=== PATIENT | female | born 1945 | race Hispanic/Latino ===

== ENCOUNTER → 2017-07-12 | Outpatient (CLI) | payer OTHER, MEDICARE | END | disposition home or self-care (01) | LOC: RAH 09:01 | PROVIDERS: ATTEND Family Medicine | DX: R10.10 Upper abdominal pain, unspecified (principal) | CPT/HCPCS: 76700 ==

== ENCOUNTER → 2017-12-12 | Outpatient (CLI) | payer OTHER, MEDICARE | END | disposition home or self-care (01) | LOC: OIH 13:05 | PROVIDERS: ATTEND Family Medicine | DX: J44.9 Chronic obstructive pulmonary disease, unspecified (principal); I10 Essential (primary) hypertension; Z90.11 Acquired absence of right breast and nipple | CPT/HCPCS: 71046 ==

== ENCOUNTER → 2018-01-09 | Outpatient (CLI) | payer OTHER, MEDICARE | END | disposition home or self-care (01) | LOC: RAH 13:06 | PROVIDERS: ATTEND Family Medicine | DX: I65.29 Occlusion and stenosis of unspecified carotid artery (principal) | CPT/HCPCS: 93880 ==

== ENCOUNTER → 2018-03-01 | Outpatient (CLI) | payer OTHER, MEDICARE | END | disposition home or self-care (01) | LOC: RAH 07:45 | PROVIDERS: ATTEND Family Medicine | DX: N63.20 Unspecified lump in the left breast, unspecified quadrant (principal); I07.1 Rheumatic tricuspid insufficiency; I12.9 Hypertensive chronic kidney disease with stage 1 through stage 4 chronic kidney disease, or unspecified chronic kidney disease; N18.1 Chronic kidney disease, stage 1; Z85.3 Personal history of malignant neoplasm of breast | CPT/HCPCS: 76641; 93306 ==

== ENCOUNTER → 2018-09-18 | Outpatient (CLI) | payer OTHER, MEDICARE | END | disposition home or self-care (01) | LOC: RAH 09-04 12:37 | PROVIDERS: ATTEND Family Medicine | DX: N60.49 Mammary duct ectasia of unspecified breast (principal); Z85.3 Personal history of malignant neoplasm of breast | CPT/HCPCS: 76641; 77065 ==

== ENCOUNTER → 2018-10-31 | Outpatient (CLI) | payer OTHER, MEDICARE | END | disposition home or self-care (01) | LOC: RAH 07:48 | PROVIDERS: ATTEND Family Medicine | DX: I12.9 Hypertensive chronic kidney disease with stage 1 through stage 4 chronic kidney disease, or unspecified chronic kidney disease (principal); E11.22 Type 2 diabetes mellitus with diabetic chronic kidney disease; N18.3 Chronic kidney disease, stage 3 (moderate); N28.1 Cyst of kidney, acquired | CPT/HCPCS: 76770; 93975 ==

== ENCOUNTER → 2018-11-12 | Outpatient (CLI) | payer OTHER, MEDICARE | END | disposition home or self-care (01) | LOC: OIH 15:13 | PROVIDERS: ATTEND Family Medicine | DX: R05 Cough (principal); I70.0 Atherosclerosis of aorta; Z90.11 Acquired absence of right breast and nipple | CPT/HCPCS: 71046 ==

== ENCOUNTER → 2018-12-03 | Outpatient (CLI) | payer OTHER, MEDICARE | END | disposition home or self-care (01) | LOC: RAH 06:49 | PROVIDERS: ATTEND Internal Medicine Gastroenterology | DX: R14.0 Abdominal distension (gaseous) (principal); R10.13 Epigastric pain; R11.0 Nausea | CPT/HCPCS: 78264; A9541 ==

== ENCOUNTER → 2018-12-11 | Outpatient (CLI) | payer OTHER, MEDICARE ==
[2018-12-11 08:20] LABS: BASOPHILS % (AUTO) 0.9 % (0.0-5.0); EOSINOPHILS % (AUTO) 3.1 % (0.0-8.0); HEMATOCRIT 34.8 % (36-48); LYMPHOCYTES % (AUTO) 23.8 % (21.0-51.0); MEAN CORPUSCULAR HEMOGLOBIN 28.3 pg (27.0-33.0); MEAN CORPUSCULAR VOLUME 83.1 fL (79-99); MONOCYTES % (AUTO) 8.9 % (3.0-13.0); NEUTROPHILS % (AUTO) 63.3 % (40.0-77.0); NUCLEATED RED BLOOD CELLS 0.1 % (0.0-0.19); PLATELET COUNT (AUTO) 281 K/uL (130-400); RED BLOOD CELL COUNT(AUTO) 4.19 MIL/uL (4.00-5.50); RED CELL DISTRIBUTION WIDTH 14.5 % (11.0-15.5); WHITE BLOOD COUNT (AUTO) 7.2 K/uL (4.8-10.8)
[2018-12-11 08:35] LABS: ALBUMIN 3.9 g/dL (3.5-5.0); BILIRUBIN,TOTAL 0.4 mg/dL (0.2-1.0); CREATININE 1.3 mg/dL (0.5-1.5); POTASSIUM 4.3 mmol/L (3.5-5.1); TOTAL PROTEIN, SERUM 7.9 g/dL (6.0-8.3)
== END | disposition home or self-care (01) ==
LOC: RAH 07:53
PROVIDERS: ATTEND Internal Medicine Gastroenterology
DX: N28.1 Cyst of kidney, acquired (principal); N28.89 Other specified disorders of kidney and ureter
CPT/HCPCS: 36415; 76700; 80053; 82150; 83690; 85025

== ENCOUNTER → 2020-02-12 | Outpatient (CLI) | payer OTHER, MEDICARE | END | disposition home or self-care (01) | LOC: RAH 14:38 | PROVIDERS: ATTEND Family Medicine | DX: H81.10 Benign paroxysmal vertigo, unspecified ear (principal); R26.89 Other abnormalities of gait and mobility; R55 Syncope and collapse; R09.89 Other specified symptoms and signs involving the circulatory and respiratory systems | CPT/HCPCS: 70450; 93880 ==

== ENCOUNTER → 2022-06-27 | Outpatient (CLI) | payer OTHER, MEDICARE ==
[~2022-06-27] MED LIST: AMLO-257 PO; AMOX-426 PO; FOLI1 PO; ISOS30TA92 PO; LISI10TA24 PO; METO5TAB2 PO
== END | disposition home or self-care (01) ==
LOC: RAH 06-23 13:23
PROVIDERS: ATTEND Family Medicine
DX: R51.9 Headache, unspecified (principal); I77.6 Arteritis, unspecified
CPT/HCPCS: 70551